=== PATIENT | male | born 1965 | race Caucasian/White ===

== ENCOUNTER 2018-09-29 07:31 | Day surgery (SDC) | payer BC ==
[~2018-09-29] VITALS: Ht 180.3 cm; Wt 96.6 kg
[2018-09-29] MEDS ORDERED: BUPIVAC MPF-EPI 0.5%-1:200000 30 ML VIAL. ONE (07:55)
--- NOTE | 2018-09-29 08:03 | DISCH ---
DISCHARGE INSTRUCTIONS Condition on Discharge Condition on Discharge: Stable Activity After Discharge Activity Instructions for Disc: Other, see below (avoid hard grasping with right hand, may do fine motor use including typing as tolerated) Diet after Discharge Diet after Discharge: Regular Wound Incision Care Wound/Incision Care: Change dressing (May remove dressing in 2 days, do not remove butterfly strips, may shower but no soaking wound until follow-up visit) Contacting the DRPadma after DC Call your doctor for: Concerns you may have Follow-Up Follow up with: Skye 7-10 days GAVIN NORWOOD MD Sep 29, 2018 08:03
[2018-09-29] MEDS ORDERED: PROPOFOL 20 ML IV ONE (08:13)
[2018-09-29] MEDS ORDERED: fentaNYL PF VIAL 100 MCG/2 ML VIAL ONE (08:13)
[2018-09-29] MEDS ORDERED: ONDANSETRON PF 4 MG/2 ML VIAL. ONE (08:13)
[2018-09-29] MEDS ORDERED: MIDAZOLAM HCL/PF 2 MG/2 ML VIAL. ONE (08:13)
[2018-09-29] MEDS ORDERED: DEXAMETHASONE SOD PHOS 4 MG/ML VIAL ONE (08:13)
[2018-09-29] MEDS ORDERED: LIDOCAINE 2% PF 5 ML VIAL. ONE (08:13)
[2018-09-29] MEDS ORDERED: IV RINGERS,LACTATED 1000ML 1,000 ML IV SCH ×2 (08:45→09:31)
[2018-09-29] MEDS ORDERED: ceFAZolin 2GM PREMIX 2 GM/50 ML BAG IV ONE (09:00)
[2018-09-29] MEDS ORDERED: SEVOFLURANE 31 TO 60 MINUTES. IH ONE (09:12)
--- NOTE | 2018-09-29 09:31 | PDOC4 ---
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 Estimated blood loss: Less than 5 mL Complications: None Operative indications: Please see my preoperative clinic note for detailed operative indications and note that the patient is a 53-year-old male with long- standing right wrist pain more severe with activity such as grasping and typing. He had previously undergone injection with recurrence and clinically has tenderness over the first dorsal compartment with calcification noted in the same area on x-ray. I had gone over with him additional nonoperative treatment options of activity modification which is unsatisfactory to him and the possibility of surgical release of the first dorsal compartment. We covered the possibility of infection nerve or blood vessel damage continued pain medical or other anesthetic complications among others he wishes to proceed with surgical evaluation and treatment having given informed consent Operative text: Patient was identified procedure verified patient placed in the supine position on the operating table. After adequate amounts of general anesthesia were administered the right upper extremity was prepped and draped in standard sterile fashion with an upper arm tourniquet. After timeout was performed patient procedure identified and verified, tourniquet was inflated to 250 mmHg and a longitudinal incision was made superficial radial nerve branches were avoided and dissection carried out directly down to the first dorsal compartment which was released longitudinally throughout its length. He was noted to have some average less than 1 mm diameter calcified nodules in the tendon sheath itself which were excised and sent for pathological evaluation. Thorough irrigation carried out normal saline solution bleeding points c ontrolled by electrocautery and half percent Marcaine with epinephrine was injected around the wound in subcutaneous tissue. Closure accomplished with buried Vicryl subcuticular Monocryl Steri-Strips and Mastisol sterile dressings were applied fingers noted be warm pink following deflation of tourniquet and patient was returned recovery room in stable condition having tolerated the procedure well GAVIN NORWOOD MD Sep 29, 2018 09:31
[2018-09-29] MEDS ORDERED: TRAM50TA PO (09:35)
[2018-09-29] MEDS ORDERED: HYDROmorphone 2 MG/ML VIAL IV PRN (09:45)
[2018-09-29] MEDS ORDERED: ONDANSETRON PF 4 MG/2 ML VIAL. IV PRN (09:45)
[2018-09-29] MEDS ORDERED: traMADol 50 MG TABLET PO ONE (09:45)
[2018-09-29] MEDS ORDERED: LIDOCAINE 1% PF 2 ML VIAL. ID PRN (09:45)
[2018-09-29] MEDS ORDERED: fentaNYL PF VIAL 100 MCG/2 ML VIAL IV PRN ×2 (09:45)
[2018-09-29] MEDS ORDERED: MORPHINE SULFATE 2 MG/ML VIAL. IV PRN (09:45)
[2018-09-29] MEDS ORDERED: PROCHLORPERAZINE 10 MG/2 ML VIAL. IV PRN (09:45)
[2018-09-29 10:15] VITALS: BP 119/76
--- NOTE | 2018-09-30 18:06 | PATHOLOGY ---
[facility] Accession Number: [id number] . 01 Material submitted: . wrist - CALCIFIED TENDON SHEATH, RIGHT WRIST FIRST DORSAL COMPARTMENT RELEASE. Modifiers: right, first . 01 Clinical history: . None provided. . 02 Diagnosis: Tenosynovial tissue, right wrist: - Localized tenosynovial giant cell tumor, with extensive calcification. (JPM:ramandeep; 09/30/2018) MBR/09/30/2018 . 02 Comment: There is no evidence of malignancy. . 02 Electronically signed: . Jelani Duque MD, Pathologist NPI- [id number] . 01 Gross description: . Received in formalin labeled "Connell, Niko, calcified tendon sheath" is a 1.6 x 1.5 x 0.3 cm aggregate of montano-white rubbery soft tissue fragments. The specimen is submitted entirely in cassette A1. ([facility]; 09/29/2018) SYC/SY . 02 Pathologist provided ICD-10: D48.1 . 02 CPT . 233939 Specimen Comment: A courtesy copy of this report has been sent to Specimen Comment: [phone], . Specimen Comment: Report sent to / DR APPIAH Performed at: 01 [facility] [address], [place], [place] [id number] MD Man Myers MD Phone: [phone] Performed at: 02 [facility] [address] [place], [place] [id number] MD Jelani Duque MD Phone: [phone]
== END 2018-09-29 10:50 | disposition home or self-care (01) ==
LOC: SURG 07:31
PROVIDERS: ATTEND Orthopaedic Surgery
DX: M65.4 Radial styloid tenosynovitis [de Quervain] (principal); Z90.49 Acquired absence of other specified parts of digestive tract; Z98.890 Other specified postprocedural states
CPT/HCPCS: 25000; 88307; A7015; J0696; J1100; J2001; J2250; J2405; J2704; J3010; J3490; A4461

== ENCOUNTER 2019-03-19 09:17 | Day surgery (SDC) | payer BC ==
[~2019-03-19] VITALS: Ht 180.3 cm; Wt 99.5 kg
[~2019-03-19 09:17] MED LIST: IV RINGERS,LACTATED 1000ML 1,000 ML IV SCH; ONDANSETRON PF 4 MG/2 ML VIAL. IV PRN; PROCHLORPERAZINE 10 MG/2 ML VIAL. IV PRN; TRAM50TA PO; fentaNYL PF VIAL 100 MCG/2 ML VIAL IV PRN
[2019-03-19] MEDS ORDERED: TRAZ-118 PO (10:08)
[2019-03-19] MEDS ORDERED: SIMV20TA18 PO (10:08)
[2019-03-19] MEDS ORDERED: MULT-245 PO (10:09)
[2019-03-19] MEDS ORDERED: OMEG100021 PO (10:09)
[2019-03-19] MEDS ORDERED: DEXAMETHASONE SOD PHOS 4 MG/ML VIAL ONE (10:23)
[2019-03-19] MEDS ORDERED: ONDANSETRON PF 4 MG/2 ML VIAL. ONE (10:23)
[2019-03-19] MEDS ORDERED: PROPOFOL 20 ML IV ONE (10:23)
[2019-03-19] MEDS ORDERED: SEVOFLURANE 31 TO 60 MINUTES. IH ONE (10:23)
[2019-03-19] MEDS ORDERED: LIDOCAINE 1% 20 ML VIAL. ONE (10:26)
[2019-03-19] MEDS ORDERED: KETOROLAC 30 MG/ML VIAL. ONE (11:12)
[2019-03-19] MEDS ORDERED: PHENYLEPHRINE in 0.9% NACL PF 1 MG/10 ML SYRINGE. IV ONE (11:16)
[2019-03-19] MEDS ORDERED: TRAM50TA PO (11:59)
[2019-03-19] MEDS ORDERED: traMADol 50 MG TABLET PO ONE (12:00)
[2019-03-19 12:09] VITALS: BP 130/73
--- NOTE | 2019-03-19 12:22 | DISCH ---
DISCHARGE INSTRUCTIONS Condition on Discharge Condition on Discharge: Stable (no hard grasp with operative hand) Activity After Discharge Activity Instructions for Disc: Other, see below Diet after Discharge Diet after Discharge: Regular Wound Incision Care Wound/Incision Care: Change dressing (remove dressing in 3 days may then shower no soaking until sutures removed) Contacting the after DC Call your doctor for: Concerns you may have Follow-Up Follow up with: Dr. Cheung 10 days AGVIN CHEUNG MD Mar 19, 2019 12:22
--- NOTE | 2019-03-19 13:39 | OP ---
DATE OF SURGERY: 03/19/2019 ORTHOPEDIC OPERATIVE NOTE PREOPERATIVE DIAGNOSIS: Left fifth trigger finger. POSTOPERATIVE DIAGNOSIS: Left fifth trigger finger. PROCEDURE: Left fifth trigger finger release. SURGEON: Niko Cheung M.D. ANESTHESIA: General LMA. ESTIMATED BLOOD LOSS: 1 mL. COMPLICATIONS: None. OPERATIVE INDICATIONS: Please see my preoperative clinic note for detailed operative indications and note, the patient was having some symptoms of triggering. He had elected more definitive treatment than injection and wishes to proceed with a trigger finger release and is aware of the possibility of nerve or blood vessel damage, infection, possibility of scarring and stiffness, medical or other anesthetic complications among others. All his questions were answered. He wishes to proceed with surgical evaluation and treatment. OPERATIVE TECHNIQUE: The patient was identified, procedure verified, the patient placed in the supine position on the operating table. After adequate amounts of general anesthesia were administered, the left upper extremity was prepped and draped in standard sterile fashion with an upper arm tourniquet. After timeout was performed, the patient and procedure identified and verified. The left upper extremity was exsanguinated by Esmarch bandage. Tourniquet was inflated to 250 mmHg. A transverse incision was made over the distal palmar crease overlying the fifth flexor tendon and dissection was carried out midline onto the tendon. Neurovascular bundles were protected distally. A midline incision was made in the tendon sheath and the A1 félix was divided fully under direct vision and palpation, eliminating the triggering. Irrigation with normal saline solution. The tendon was verified to be undamaged aside from the observed irritation on the tendon, but no other compromise noted and it was noted to glide freely throughout its full range of motion and flexor profundus and superficialis portions intact with no synovitis. The closure was accomplished with 3-0 nylon suture in a vertical mattress fashion. Xeroform gauze followed by sterile dressing was applied. Fingers were noted to be warm and pink following deflation of the tourniquet. The patient was returned to recovery room in stable condition, having tolerated the procedure well. NIKO CHEUNG MD DR: VIANCA/cici JOB#: [id number] / [id number]
== END 2019-03-19 12:35 | disposition home or self-care (01) ==
LOC: SURG 09:17
PROVIDERS: ATTEND Orthopaedic Surgery
DX: M65.352 Trigger finger, left little finger (principal); G43.909 Migraine, unspecified, not intractable, without status migrainosus; E78.00 Pure hypercholesterolemia, unspecified; E66.9 Obesity, unspecified; Z68.30 Body mass index [BMI] 30.0-30.9, adult; Z90.49 Acquired absence of other specified parts of digestive tract
CPT/HCPCS: 26055; J0696; J1100; J1885; J2370; J2405; J2704